=== PATIENT | male | born 1960 | race Caucasian/White ===

== ENCOUNTER 2023-10-11 13:17 | Emergency (ER) | payer BC ==
[~2023-10-11] VITALS: Ht 177.8 cm; Wt 90.6 kg
[2023-10-11] MEDS ORDERED: ATOR1TAB19 PO (13:23)
[2023-10-11] MEDS: LIDOCAINE 1% MDV 20ML VIAL SC ONE (16:20)
[2023-10-11] MEDS: CEPHALEXIN 500 MG CAP PO ONE (16:29)
[2023-10-11] MEDS ORDERED: CEPH500T PO (16:46)
[2023-10-11 16:51] VITALS: BP 131/79; TEMP 97.5; O2SAT 96
== END 2023-10-11 16:58 | disposition home or self-care (01) ==
LOC: M ED 13:17
DX: S81.011A Laceration without foreign body, right knee, initial encounter (principal); Y92.9 Unspecified place or not applicable; Y93.9 Activity, unspecified; Y99.9 Unspecified external cause status; Z79.2 Long term (current) use of antibiotics; Z79.899 Other long term (current) drug therapy